=== PATIENT | female | born 1950 | race Caucasian/White ===

== ENCOUNTER → 2024-06-09 | Outpatient (CLI) | payer MEDICARE, BC, SELFPAY ==
--- NOTE | 2024-06-09 | XR_ITS ---
Examination: PA lateral chest 2 views TECHNIQUE: Upright PA lateral chest 2 views Exam date and time: June 09, 2024 at 1148 hours Comparison March 08, 2022 INDICATIONS: Irregular heart rhythm today FINDINGS: Normal heart size Ectatic thoracic aorta. The lungs are clear Moderate osteopenia IMPRESSION: No active disease
[2024-06-09 13:10] LABS: Basophils % (Auto) 0 % (0-2.5); Eosinophils # (Auto) 0.2 Thou/mm3 (0.0-0.5); Eosinophils % (Auto) 4 % (0-10); Hematocrit 38.2 % (36.0-46.0); Hemoglobin 12.8 g/dL (12.0-16.0); Immature Granulocytes % (Auto) 0 % (0-0); Immature Granulocytes Auto 0.01 Thou/mm3 (0.00-0.00); Lymphocytes # (Auto) 1.4 Thou/mm3 (1.0-4.8); Lymphocytes % (Auto) 26 % (10-50); Mean Corpuscular HGB Conc 33.5 g/dl (31.0-37.0); Mean Corpuscular Hemoglobin 32.6 pg (25.0-35.0); Mean Corpuscular Volume 97 fL (80-100); Monocytes # (Auto) 0.4 Thou/mm3 (0.0-0.8); Monocytes % (Auto) 7 % (0-12); Neutrophils # (Auto) 3.4 Thou/mm3 (1.8-7.7); Neutrophils % (Auto) 62 % (37-80); Nucleated Red Blood Cell % 0 /100 WBC (0); Platelet Count 204 Thou/mm3 (140-440); RDW Standard Deviation 46.9 fL (36.4-46.3); Red Blood Count 3.93 Miln/mm3 (4.00-5.20); White Blood Count 5.5 Thou/mm3 (3.6-11.0)
[2024-06-09 13:29] LABS: Alanine Aminotransferase 19 U/L (10-49); Albumin, Serum 4.6 gm/dL (3.4-4.8); Albumin/Globulin Ratio 1.9 (1.2-2.2); Alkaline Phosphatase 80 U/L (46-116); Anion Gap 9 (7-16); Aspartate Amino Transferase 27 U/L (0-34); BUN/Creatinine Ratio 14 Ratio (12-20); Bilirubin,Total 0.3 mg/dL (0.3-1.2); Blood Urea Nitrogen 15 mg/dL (9-23); Calcium 11.4 mg/dL (8.3-10.6); Calcium (Corrected) 11.4 mg/dL (8.5-10.1); Carbon Dioxide 31.5 mMol/L (20.0-31.0); Chloride 105 mMol/L (98-107); Creatinine (Component) 1.1 mg/dL (0.6-1.3); Globulin 2.4 gm/dL (2.3-3.5); Glucose 102 mg/dL (74-106); Osmolality,Calculated 289 (275-295); Potassium 4.1 mMol/L (3.4-5.1); Sodium 145 mMol/L (136-145); eGFR 53 See Note
== END | disposition home or self-care (01) ==
LOC: CDIM 11:11 → COPL 11:57
PROVIDERS: PCP Family Medicine; Referring Provider Family Medicine; Visit Provider Radiology Diagnostic Radiology
DX: Z01.89 Encounter for other specified special examinations (principal); Z01.818 Encounter for other preprocedural examination
CPT/HCPCS: 36415; 71046; 80053; 85025

== ENCOUNTER → 2024-08-28 | Outpatient (CLI) | payer MEDICARE, BC, SELFPAY ==
--- NOTE | 2024-08-28 09:15 | XR_ITS ---
Examination: Screening digital mammography, bilateral Computer aided detection 3-D breast Tomosynthesis, bilateral Date and time of exam: August 28, 2024 0855 hours Compared to mammograms dating to December 12, 2016 Indication: Screening Technique: Nonmagnified MLO, CC views of the breasts to been obtained, reconstructed from 3-D Tomosynthesis images. R2 computer aided detection program utilized for evaluation of suspicious masses and/or abnormal calcifications. 3-D Tomosynthesis images obtained. Findings: The breasts are heterogeneously dense, which may obscure small masses The breast architecture is nodular Left breast sonogram July 25, 2023 demonstrated 5:00 nodule 12 x 9 mm Impression: BI-RADS Category 0: Incomplete: Need additional imaging evaluation Recommend follow-up bilateral breast sonography
== END | disposition home or self-care (01) ==
PROVIDERS: PCP Family Medicine; Referring Provider Family Medicine; Visit Provider Family Medicine
DX: Z12.31 Encounter for screening mammogram for malignant neoplasm of breast (principal)
CPT/HCPCS: 77063; 77067

== ENCOUNTER 2024-09-13 06:52 | Emergency (ER) | payer MEDICARE, BC, SELFPAY ==
[2024-09-13 06:53] VITALS: BP 151/80; PULSE 60; PULSE 66; RESP 18; RESP 20; TEMP 36.7; O2SAT 94; O2SAT 98
--- NOTE | 2024-09-13 07:09 | EDNOTE_ITS ---
ED Chest Pain RME/HPI General Chief Complaint: Back Pain/Injury Stated Complaint: BACK PAIN Time Seen by Provider: 09/13/24 07:15 Arrival date/time: 09/13/24 06:52 Limitations: no limitations RME / HPI RME / HPI narrative: 74 year old female with history of osteoporosis, GERD and chronic lower back pain, presented to the ER [facility] with a chief complaint of chest pain and SOB accompanied by upper back pain. Per patient, she started to experience pain in her upper back when she woke up this morning. Per patient the pain diffused all the body, primarily in her chest. Per patient, she stated she couldn't breath and had SOB. Her called 911 for EMS to arrive shortly. Patient stated her pain scale was a 9 when asked in the ambulance bay. Patient stated she starting using a weight loss medication, Phentaermine, 1 month ago. Patient also stated she has been taking Prednisone and Z-packs for ongoing sinus infection that started on 08/24/24. Patient stated her family does have history of heart problems. Her father and brother have undergone a triple bypass surgery in the past. However, patient denies she had experienced any heart problems or similar symptoms. Patient denies pain in her neck traveling up to her jaw. Patient denies history of diabetes or hypertension. Patient denies history of smoking or drinking. Related Data Home Medications ?Medication ?Instructions ?Recorded ?Confirmed bimatoprost 0.01 % eye drops 1 drp ophthalmic (eye) QD AY 01/06/20 01/06/20 (Lumigan) famotidine 20 mg tablet 20 mg PO QDAY 01/06/2001/05 lorazepam 1 mg tablet 1 mg PO QDAY PRN Sleep 01/0501/06/20 meclizine 25 mg tablet 25 mg PO QDAY PRN Vertigo 01/06/20 methocarbamol 500 mg tablet 500 mg PO QDAY PRN Pain 01/06/20 montelukast 10 mg tablet 10 mg PO QDAY 01/06/2001/05 (Singulair) pentosan polysulfate sodium 100 mg 100 mg PO TID 01/0501/06/20 capsule (Elmiron) Previous Rx's ?Medication ?Instructions ?Recorded apixaban 5 mg (74 tabs) tablets in 5 mg PO BID #74 tab s 01/04/23 a dose pack (Eliquis DVT-PE Treat 30D Start) Allergies Allergy/AdvReac Type Severity Reaction Status Date / Time No Known Allergies Allergy Verified 01/05/23 15:07 Review of Systems Review of Systems Systems Reviewed: All systems reviewed, normal except as documented Narrative Review of Systems: Gen: No fever, no chills, no weight loss EYES: No discharge, no visual changes, no pain HEENT: No ear pain, no congestion, no sore throat PULM: +shortness of breath, no cough, no congestion CV: +chest pain, no dyspnea on exertion, no palpitations GI: No nausea, no vomiting, no diarrhea, no pain, no constipation : No frequency, no urgency, no dysuria Musc/skel: No joint pain, +upper back pain Skin: No rash Psyc: No hallucinations, no depression Heme/Lymph: No easy bleeding or bruising tendencies Neuro: no weakness, no headache Past Medical History Past Medical History NEUROLOGIC: Negative Neurological Disorders CARDIAC: Negative Cardiac Disorders or Congestive Heart Failure RESPIRATORY: Negative Chronic Obstructive Pulmonary Disease (COPD) GASTROINTESTINAL: Positive Gastrointestinal Disorders and Gastroesophageal Reflux Disease GENITOURINARY: Positive Genitourinary Disorders (interstitial cystitis); Negative Renal Disease MUSCULOSKELETAL: Positive Musculoskeletal Disorders and Osteoporosis ENT: Positive Glaucoma ENDOCRINE: Negative Diabetes Mellitus Type 1 or Diabetes Mellitus Type 2 OTHER HISTORY: Negative Blood Transfusions, Blood Transfusion Reaction or Anesthesia Reactions Surgical History SURGICAL: Positive Hysterectomy Social History SMOKING STATUS: Never smoker ED Exam General Limitations: Present no limitations General appearance: Present alert and other (well nourshied, alert and orientated) Head Head exam: Present atraumatic Eye Eye exam: Present normal appearance, PERRL and EOMI ENT ENT exam: Present normal exam, normal oropharynx and mucous membranes moist Neck Neck exam: Present normal inspection, full ROM and trachea midline Chest Chest inspection: Present normal inspection and symmetric chest wall rise Respiratory Respiratory exam: Present normal lung sounds bilaterally and other (tachypenic ) Cardiovascular Cardiovascular exam: Present bradycardia, normal heart sounds and other (no murmur) Abdominal Exam Abdominal exam: Present soft and normal bowel sounds Extremities Exam Extremities exam: Present normal inspection, full ROM and other (no edema ) Back Exam Back exam: Present normal inspection and full ROM Neurological Exam Neurological exam: Present alert, oriented X3, CN II-XII intact and other (non- focal ) Psychiatric Psychiatric exam: Present normal affect and normal mood Skin Skin exam: Present warm, dry, intact and other (pale) Course Course Course Narrative: Chest x-ray has been ordered due to determining etiology of chest pain and SOB. Quality Measures none Orders Category Date Time Status CT Screening NOW Care 09/13/24 07:[address] Screening X1 Care 09/13/24 07:15 Completed Rivet Tapping Machine Operator STAT Care 09/13/24 07:15 Completed Continuous Pulse Oximetry ONCE Care 09/13/24 07:15 Completed EKG (ED ONLY) *Do not use* NOW Care 09/13/24 06:56 Completed In and Out Catheter X1 Care 09/13/24 07:15 Completed Insert IV STAT Care 09/13/24 07:15 Completed Transfer to another facility [Transfer/Discharge] Stat Discharge 09/13/24 09:[address] chest abd w Stat Exams 09/13/24 07:15 Completed EKG (ED Only) Stat Exams 09/13/24 06:56 Ordered XR chest 1V portable Stat Exams 09/13/24 07:15 Completed B-Type Natriuretic Peptide Stat Lab 09/13/24 07:53 Completed CBC Stat Lab 09/13/24 07:53 Completed Comprehensive Metabolic Panel Stat Lab 09/13/24 07:53 Completed Lipase Stat Lab 09/13/24 07:53 Completed Magnesium Stat Lab 09/13/24 07:53 Completed Partial Thromboplastin Time Stat Lab 09/13/24 07:53 Completed Prothrombin Time with INR Stat Lab 09/13/24 07:53 Completed Troponin I Stat Lab 09/13/24 07:53 Completed UA, C/S IF [Urinalysis, C/S if Indicated] Stat Lab 09/13/24 09:26 Completed Aspirin Chew Med 09/13/24 07:15 Discontinued 324 mg PO X1 ONE Morphine Inj Med 09/13/24 07:21 Discontinued 2 mg IVP X1 ONE Morphine Inj Med 09/13/24 11:26 Discontinued 4 mg IVP X1 ONE Nitroglycerin [Nitrostat 1/150] Med 09/13/24 07:15 Discontinued 0.4 mg SL Q5M PRN Ondansetron Inj [Zofran Inj] Med 09/13/24 07:15 Discontinued 4 mg IV Q1HR PRN Ondansetron Inj [Zofran Inj] Med 09/13/24 11:26 Discontinued 4 mg IV X1 ONE Sodium Chloride 0.9% 1000 ml [Ns] 1,000 ml Med 09/13/24 07:15 Discontinued IV 50 mls/hr Oxygen Delivery NOW RT 09/13/24 07:15 Completed Vital Signs Vital signs: Vital Signs Temperature 98.0 F 09/13/24 06:53 Pulse Rate 60 09/13/24 06:53 Respiratory Rate 18 09/13/24 06:53 Blood Pressure 151/80 H 09/13/24 06:53 Pulse Oximetry (%) 98 09/13/24 06:53 Oxygen Delivery Method Room Air 09/13/24 06:53 Chest Pain MDM Narrative MDM Narrative:: IKavya am scribing for and in the presence of Dr. Osullivan. Patient data External records reviewed:: [facility] previous records Clinical information provided by:: patient Social determinants that could affect healthcare access:: none Patient has the following chronic illnesses:: osteoporosis, GERD and chronic lower back pain How is presenting disease/condition affected by chronic disease/condition?: exacerbated by Evaluation data The following diagnostics were reviewed and interpreted by me:: lab results, radiology exam(s) and EKG tracing(s) (-EKG#1: EKG at 0653 hours.Interpreted by me: ectopic atrial bradycardia, rate 53, first degree AV block, no acute ST/T wave changes) Lab and/or radiology exams considered but not ordered:: none Interpretation Summary: Ordering Physician: Ryan Osullivan MD Date of Service: 09/13/24 Procedure(s): XR chest 1V portable Accession Number(s): [id number] cc: Ryan Osullivan MD; Tray Rojas MD; Gail Cosme MD~ Examination: AP chest single view Technique one AP portable semiupright chest single view Examination type: September 13, 2024 0810 hours Comparison June 09, 2024 INDICATIONS: Chest pain radiating to the back beginning this morning. FINDINGS: Normal heart size Mild ectasia thoracic aorta. No pneumonia or pulmonary edema. Moderate osteopenia IMPRESSION: No active disease Dictated By: Tray Rojas MD Signed By: <Electronically signed by Tray Rojas MD in OV> 09/13/24 0827 Ordering Physician: Ryan Osullivan MD Date of Service: 09/13/24 Procedure(s): CT chest abd w Accession Number(s): [id number] cc: Ryan Osullivan MD; Tray Rojas MD; Gail Cosme MD~ Examination: CT chest with intravenous contrast CT abdomen with intravenous contrast CT pelvis with intravenous contrast 2-D coronal and sagittal reconstructions Time of exam: September 13, 2024 0856 hours INDICATIONS: Chest pain shortness of breath back pain today CTDI: vol (mGy) : 14.5 DLP: (mGycm): 670 Technique: Multiple axial images of the chest, abdomen and pelvis with intravenous contrast, 3.0 mm slice thickness. Images obtained post intravenous injection Isovue 370 60 cc. 2-D sagittal and coronal reconstructions. Low dose protocols were performed. One or more of the following dose reduction techniques were used; automated exposure control, adjustment of the mA and/or KV according to patient size, use of iterative reconstruction technique. Findings: No thoracic aortic aneurysmal dilatation No pulmonary artery filling defects Ulceration in the wall of the posterior descending thoracic aorta, axial image 83 with chronic thrombus, no definite intimal filling defect, as well as small contrast accumulation in the descending thoracic aorta, axial image 54 which can be a sign of early descending thoracic aortic dissection No pneumonia or pulmonary edema Mild enlargement left atrium and left ventricle No visualized liver splenic lesion No gallstones No pancreatic or adrenal mass Small fat-containing umbilical hernia Abdominal aortic calcification no aneurysmal dilatation No renal or ureteral calculi, no hydronephrosis No pericecal inflammatory change Colonic diverticulosis, no diverticulitis Tiny air droplet in the urinary bladder Severe osteopenia Lumbar fusion L4-L5 Mild to moderate thoracic degenerative disc disease IMPRESSION: No thoracic aortic aneurysm dilatation Ulceration in the wall of the posterior descending thoracic aorta, axial image 83 with chronic thrombus, as well as early contrast accumulation in the posterior wall of the descending thoracic aorta, axial image 53 which may be a finding of early descending thoracic aortic dissection, clinical correlation advised Recommend close clinical observation and short-term follow-up CTA chest as clinically warranted Dictated By: Tray Rojas MD Signed By: <Electronically signed by Tray Rojas MD in OV> 09/13/24 0918 Medications / Prescriptions Medications or Prescriptions considered but not ordered:: none Medication administrations:: Medication Administration History Discontinued Medications Aspirin (Aspirin 81 Mg Chew) 324 mg PO X1 ONE Stop: 09/13/24 07:16 Last Admin: 09/13/24 08:30 Dose: Not Given Documented By: DO Non-Admin Reason: Other, see note Comments: PT TO FOUR 81MG ASA PRIOR TO ARRIVAL AT 0600AM Sodium Chloride (Ns) 1,000 mls @ 50 mls/hr IV .Q20H ONE Stop: 09/14/24 03:14 Last Admin: 09/13/24 08:50 Dose: 50 mls/hr Documented By: DO Morphine Sulfate (Morphine Sulf Inj 10 Mg/Ml Vial) 2 mg IVP X1 ONE Stop: 09/13/24 07:22 Last Admin: 09/13/24 08:44 Dose: 2 mg Documented By: DO Morphine Sulfate (Morphine Sulf Inj 10 Mg/Ml Vial) 4 mg IVP X1 ONE Stop: 09/13/24 11:27 Last Admin: 09/13/24 11:36 Dose: 4 mg Documented By: DO Nitroglycerin (Nitroglycerin 0.4 Mg Subl Btl #25) 0.4 mg SL Q5M PRN PRN Reason: CHEST PAIN Ondansetron HCl (Ondansetron Inj 2 Mg/Ml Inj 2 Ml) 4 mg IV Q1HR PRN PRN Reason: PERSISTENT NAUSEA OR VOMITING Ondansetron HCl (Ondansetron Inj 2 Mg/Ml Inj 2 Ml) 4 mg IV X1 ONE; Protocol Stop: 09/13/24 11:27 Last Admin: 09/13/24 11:37 Dose: Not Given Documented By: DO Non-Admin Reason: Patient Refused see above. Consultations Consultation(s) initiated? (list below): Yes Consultation #1 (Physician, Specialty, Details): I spoke withn Transfer Nurse and Physician at [facility] and was made aware of the patient?s HPI, PMHx, lab and/or radiology results. Recommended patient be transfered to a [facility]. Time: 10:25 Consultation #2 (Physician, Specialty, Details): I spoke with transfer nurse and was made aware of recommendation to transfer to a tertiary center. Time: 10:32 Consultation #3 (Physician, Specialty, Details): Patient has been accepted at [facility]. Time: 11:00 Diagnosis Chest Pain Differential Diagnosis: pneumothorax, atypical chest pain and st elevation myocardial infarction Most likely diagnosis given after review of the tests above:: hypertension, bradycardia, aortic aneurysm and dissection Admission Indicated Admission indicated?: not indicated Explain why admission is indicated or not indicated:: Patient requires transfer. Admission Request Was there a request for admission?: No Disposition Plan Disposition Plan: Transfer Critical Care Time Critical Care Time Critical Care Time: Yes Total Critical Care Time (min.): 90 Attestation: The high probability of sudden, clinically significant deterioration in the patient?s condition required the highest level of my preparedness to intervene urgently. ? The services I provided to this patient were to treat and/or prevent clinically significant deterioration. Services included the following: chart data review, reviewing nursing notes and/or old charts, documentation time, software sales consultant collaboration regarding findings and treatment options, medication orders and management, direct patient care, vital sign assessments and ordering, interpreting and reviewing diagnostic studies and lab tests. ? Aggregate critical care time includes only time during which I was engaged in work directly related to the patient?s care, as described above, whether at bedside or elsewhere in the Emergency Department. It did not include time spent performing other reported procedures or the services of residents, students, nurses or physician assistants. Discharge Plan Plan Patient Disposition: [facility] Facility Pt Being Transferred to: [facility] Service Needed for Transfer: Cardiovascular/Thoracic Surg Patient condition on transfer: Stable Prescriptions/Referrals Prescriptions/Med Rec: No Action methocarbamol 500 mg Tablet 500 mg PO QDAY PRN (Reason: Pain) Elmiron 100 mg Capsule 100 mg PO TID famotidine 20 mg Tablet 20 mg PO QDAY meclizine 25 mg Tablet 25 mg PO QDAY PRN (Reason: Vertigo) montelukast [Singulair] 10 mg Tablet 10 mg PO QDAY lorazepam 1 mg Tablet 1 mg PO QDAY PRN (Reason: Sleep) Lumigan 0.01 % Drops 1 drp OPHTHALMIC (EYE) QDAY Eliquis DVT-PE Treat 30D Start 5 mg (74 tabs) tablets,dose pack 5 mg PO BID Qty: 74 0RF Rx Instructions: Take 2 tabs PO BID for first 7 days, then 1 tab PO BID Referrals: Gail Cosme MD [Primary Care Provider] - In 1 week Problem List Clinical Impression: Hypertension, Bradycardia, Aortic aneurysm and dissection Patient/Caregiver Discharge Instructions Print Language: Mohawk Stand Alone Forms: Tiff Award Info., Patient Portal Info Letter
--- NOTE | 2024-09-13 07:15 | XR_ITS ---
Examination: CT chest with intravenous contrast CT abdomen with intravenous contrast CT pelvis with intravenous contrast 2-D coronal and sagittal reconstructions Time of exam: September 13, 2024 0856 hours INDICATIONS: Chest pain shortness of breath back pain today CTDI: vol (mGy) : 14.5 DLP: (mGycm): 670 Technique: Multiple axial images of the chest, abdomen and pelvis with intravenous contrast, 3.0 mm slice thickness. Images obtained post intravenous injection Isovue 370 60 cc. 2-D sagittal and coronal reconstructions. Low dose protocols were performed. One or more of the following dose reduction techniques were used; automated exposure control, adjustment of the mA and/or KV according to patient size, use of iterative reconstruction technique. Findings: No thoracic aortic aneurysmal dilatation No pulmonary artery filling defects Ulceration in the wall of the posterior descending thoracic aorta, axial image 83 with chronic thrombus, no definite intimal filling defect, as well as small contrast accumulation in the descending thoracic aorta, axial image 54 which can be a sign of early descending thoracic aortic dissection No pneumonia or pulmonary edema Mild enlargement left atrium and left ventricle No visualized liver splenic lesion No gallstones No pancreatic or adrenal mass Small fat-containing umbilical hernia Abdominal aortic calcification no aneurysmal dilatation No renal or ureteral calculi, no hydronephrosis No pericecal inflammatory change Colonic diverticulosis, no diverticulitis Tiny air droplet in the urinary bladder Severe osteopenia Lumbar fusion L4-L5 Mild to moderate thoracic degenerative disc disease IMPRESSION: No thoracic aortic aneurysm dilatation Ulceration in the wall of the posterior descending thoracic aorta, axial image 83 with chronic thrombus, as well as early contrast accumulation in the posterior wall of the descending thoracic aorta, axial image 53 which may be a finding of early descending thoracic aortic dissection, clinical correlation advised Recommend close clinical observation and short-term follow-up CTA chest as clinically warranted
--- NOTE | 2024-09-13 07:15 | XR_ITS ---
Examination: AP chest single view Technique one AP portable semiupright chest single view Examination type: September 13, 2024 0810 hours Comparison June 09, 2024 INDICATIONS: Chest pain radiating to the back beginning this morning. FINDINGS: Normal heart size Mild ectasia thoracic aorta. No pneumonia or pulmonary edema. Moderate osteopenia IMPRESSION: No active disease
[2024-09-13 08:21] LABS: Partial Thromboplastin Time 23.2 Seconds (22.0-36.0); Prothrombin Time 11.2 Seconds (9.0-12.2)
[2024-09-13 08:22] LABS: Basophils % (Auto) 0 % (0-2.5); Eosinophils # (Auto) 0.1 Thou/mm3 (0.0-0.5); Eosinophils % (Auto) 2 % (0-10); Hematocrit 33.8 % (36.0-46.0); Hemoglobin 11.6 g/dL (12.0-16.0); Immature Granulocytes % (Auto) 0 % (0-0); Immature Granulocytes Auto 0.01 Thou/mm3 (0.00-0.00); Lymphocytes # (Auto) 1.8 Thou/mm3 (1.0-4.8); Lymphocytes % (Auto) 31 % (10-50); Mean Corpuscular HGB Conc 34.3 g/dl (31.0-37.0); Mean Corpuscular Hemoglobin 33.5 pg (25.0-35.0); Mean Corpuscular Volume 98 fL (80-100); Monocytes # (Auto) 0.5 Thou/mm3 (0.0-0.8); Monocytes % (Auto) 9 % (0-12); Neutrophils # (Auto) 3.6 Thou/mm3 (1.8-7.7); Neutrophils % (Auto) 59 % (37-80); Nucleated Red Blood Cell % 0 /100 WBC (0); Platelet Count 167 Thou/mm3 (140-440); RDW Standard Deviation 49.1 fL (36.4-46.3); Red Blood Count 3.46 Miln/mm3 (4.00-5.20)
[2024-09-13 08:26] LABS: B-Type Natriuretic Peptide 62 pg/mL (0-100)
[2024-09-13 08:28] LABS: Alanine Aminotransferase 31 U/L (10-49); Albumin/Globulin Ratio 1.8 (1.2-2.2); Alkaline Phosphatase 72 U/L (46-116); Anion Gap 5 (7-16); Aspartate Amino Transferase 26 U/L (0-34); BUN/Creatinine Ratio 17 Ratio (12-20); Bilirubin,Total 0.5 mg/dL (0.3-1.2); Blood Urea Nitrogen 15 mg/dL (9-23); Calcium 9.2 mg/dL (8.3-10.6); Calcium (Corrected) 9.2 mg/dL (8.5-10.1); Chloride 108 mMol/L (98-107); Creatinine (Component) 0.9 mg/dL (0.6-1.3); Globulin 2.2 gm/dL (2.3-3.5); Glucose 94 mg/dL (74-106); Lipase 27 U/L (12-53); Osmolality,Calculated 283 (275-295); Potassium 3.4 mMol/L (3.4-5.1); Sodium 142 mMol/L (136-145); Total Protein 6.2 gm/dL (5.7-8.2); Troponin I < 0.002 ng/mL (0.0-0.045); eGFR > 60 See Note
[2024-09-13] MEDS: MORPHINE SULF INJ 10 MG/ML VIAL 2 MG IVP (08:44)
[2024-09-13] MEDS: SODIUM CHLORIDE 0.9% 1000 ML 1,000 ML 50 ML IV (08:50)
[2024-09-13 09:41] LABS: Collection Type, Urine Catheter; Squamous Epithelial Cell,Urine 0 /hpf (0-5)
--- NOTE | 2024-09-13 09:52 | PC.CC ---
Addendum entered by Germán Foreman RN 09/13/24 11:48: called [facility] to inform them pt was accepted by [facility]. Kim informed me they don't have the service the patient requires. Addendum entered by Germán Foreman RN 09/13/24 11:46: At 1030, received call from Kristi at [facility]. pt is accepted by Dr. Eaton ED to ED transfer. Packet completed with CD in packet. Ambulance arrived to pickling operator pt. Addendum entered by Germán Foreman RN 09/13/24 10:23: 1000: spoke to Kristi at [facility], requested imaging to be sent via synapse. Kristi requested to speak to MD requested transfer Dr. Osullivan. transferred call to Dr. Osullivan. 1017: i called and spoke to Kim at [facility], she confirmed receipt of packet and is currently reviewing. Original Note: 0951: referrals sent to [facility] and [facility] - awaiting response. 0929: spoke to mission systems engineer Lanise to clarify service needed. I was informed cardiothoracic services needed. 0922: received referral for transfer
[2024-09-13 09:56] LABS: Bilirubin,Urine Negative (Negative); Blood,Urine Trace (Negative); Clarity,Urine Clear (Clear/Hazy); Color,Urine Lt-Yellow (Lt Yel-Yel); Culture Indicated,Urine Not Indicated; Glucose, Urine Negative (Negative); Ketones,Urine Negative (Negative); Leukocyte Esterase,Urine Negative (Negative); Nitrite,Urine Negative (Negative); PH,Urine 7.5 (5.0-7.0); Protein,Urine Negative (Neg - Trace); RBC,Urine 9 /hpf (0-3); Specific Gravity,Urine 1.015 (1.001-1.035); Urobilinogen,Urine Negative mg/dL (0.0-1.0); WBC,Urine 4 /hpf (0-5)
--- NOTE | 2024-09-13 11:30 | PC.NURSE ---
REPORT GIVEN TO JUAN AT [facility]
[2024-09-13] MEDS: MORPHINE SULF INJ 10 MG/ML VIAL 4 MG IVP (11:36)
--- NOTE | 2024-09-13 11:39 | PC.NURSE ---
PT TRANSFERRED TO [facility] AT THIS TIME
== END 2024-09-13 11:50 | disposition short-term general hospital (02) ==
PROVIDERS: Emergency Provider Family Medicine; PCP Family Medicine
DX: R00.1 Bradycardia, unspecified (principal); I10 Essential (primary) hypertension; I71.012 Dissection of descending thoracic aorta
CPT/HCPCS: 36415; 71045; 71260; 74160; 80053; 81001; 83690; 83735; 83880; 84484; 85025; 85610; 85730; 93005; 96374; 99291; 99292; A4649; J2270; J7030; Q9967

== ENCOUNTER → 2024-09-19 | Outpatient (CLI) | payer MEDICARE, BC, SELFPAY ==
[2024-09-19 14:28] LABS: Collection Type, Urine Clean Catch
[2024-09-19 16:18] LABS: Clarity,Urine Cloudy (Clear/Hazy); Color,Urine Yellow (Lt Yel-Yel); Glucose, Urine 0 (Negative)
[2024-09-19 16:19] LABS: Bacteria,Urine 2+; Bilirubin,Urine Negative (Negative); Blood,Urine 3+ (Negative); Ketones,Urine Negative (Negative); Leukocyte Esterase,Urine 2+ (Negative); Nitrite,Urine Negative (Negative); Protein,Urine 1+ (Neg - Trace); RBC,Urine 5 /hpf (0-3); Squamous Epithelial Cell,Urine 2 /hpf (0-5); Urobilinogen,Urine 0.2 mg/dL (0.0-1.0); WBC,Urine 100 /hpf (0-5)
== END | disposition home or self-care (01) ==
LOC: SLDO 14:21
PROVIDERS: PCP Family Medicine; Referring Provider Family Medicine; Visit Provider Family Medicine
DX: N39.0 Urinary tract infection, site not specified (principal)
CPT/HCPCS: 81001; 87086

== ENCOUNTER → 2024-09-23 | Outpatient (CLI) | payer MEDICARE, BC, SELFPAY ==
--- NOTE | 2024-09-23 | XR_ITS ---
Examination: CTA chest, with intravenous contrast. CTA abdomen, with intravenous contrast. CTA pelvis, with intravenous contrast. 2-D sagittal and coronal reconstructions. 3-D reconstructions. Date and time of exam: September 23, [address] chest abdomen pelvis September 13, 2024 INDICATIONS: Diagnosis ulceration in the posterior descending thoracic aorta with chronic thrombus on CT study September 23, 2024 CTDI vol (mgy) 19 DLP (MGycm) 944 Technique: Multiple CTA images, 2.0 mm slice thickness, obtained chest, abdomen, pelvis, with the high-resolution 64 slice scanner. 100 cc Isovue-370 is administered intravenously. Sagittal and coronal 2-D reconstructions are obtained. 3-D reconstructions, angiographic images are obtained. 3-D postprocessing, including vascular maximum intensity projections. Low dose protocols were performed. One or more of the following dose reduction techniques were used; automated exposure control, adjustment of the mA and/or KV according to patient size, use of iterative reconstruction technique. Findings: AP dimension ascending thoracic aorta 33 mm No pulmonary artery emboli No mediastinal lymphadenopathy Posterior defect in the descending thoracic aorta axial image 121 measuring 5 mm Contrast in the wall of the descending thoracic aorta, axial image 128 consistent with early descending thoracic aortic dissection Mural thrombus in the thoracic aortic arch and descending thoracic aorta Additional contrast and double lumen in the descending thoracic aorta axial image 146 through 161 AP dimension of the true lumen descending thoracic aorta 27 mm No dissection involving the abdominal aorta is depicted No infarction involving the liver spleen or kidneys noted No gallstones No abdominal aortic aneurysmal dilatation No bowel obstruction Colonic diverticulosis Mild thickening of the urinary bladder wall anteriorly IMPRESSION: 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
== END | disposition home or self-care (01) ==
PROVIDERS: PCP Family Medicine; Referring Provider Family Medicine; Visit Provider Family Medicine
DX: I71.012 Dissection of descending thoracic aorta (principal)
CPT/HCPCS: 71275; 74174; A4649; Q9967

== ENCOUNTER → 2024-11-20 | Outpatient (CLI) | payer MEDICARE, BC, SELFPAY ==
[2024-11-20 09:49] LABS: Glucose Estimated Average 103 mg/dL (80-131); Hemoglobin A1C 5.2 % Hgb (4.8-6.0)
== END | disposition home or self-care (01) ==
LOC: COPL 09:01
PROVIDERS: PCP Family Medicine; Referring Provider Family Medicine; Visit Provider Family Medicine
DX: R79.9 Abnormal finding of blood chemistry, unspecified (principal)
CPT/HCPCS: 36415; 83036

== ENCOUNTER → 2024-11-25 | Outpatient (CLI) | payer MEDICARE, BC, SELFPAY ==
[2024-11-25 14:48] LABS: Collection Type, Urine Catheter
[2024-11-25 16:06] LABS: Bacteria,Urine Rare; Bilirubin,Urine Negative (Negative); Blood,Urine 2+ (Negative); Budding Yeast,Urine Present; Color,Urine Yellow (Lt Yel-Yel); Glucose, Urine Negative (Negative); Ketones,Urine Negative (Negative); Leukocyte Esterase,Urine Positive (Negative); Nitrite,Urine Positive (Negative); PH,Urine 7.5 (5.0-7.0); Protein,Urine Negative (Neg - Trace); RBC,Urine 16 /hpf (0-3); Specific Gravity,Urine 1.012 (1.001-1.035); Squamous Epithelial Cell,Urine < 1 /hpf (0-5); Urobilinogen,Urine Negative mg/dL (0.0-1.0); WBC,Urine 194 /hpf (0-5)
[2024-11-25 16:07] LABS: Clarity,Urine Hazy (Clear/Hazy)
== END | disposition home or self-care (01) ==
LOC: SLDO 14:39
PROVIDERS: PCP Family Medicine; Referring Provider Family Medicine; Visit Provider Family Medicine
DX: N39.0 Urinary tract infection, site not specified (principal)
CPT/HCPCS: 81001; 87077; 87086; 87186

== ENCOUNTER → 2025-01-28 | Outpatient (CLI) | payer MEDICARE, BC, SELFPAY ==
[2025-01-28 14:44] LABS: Collection Type, Urine Clean Catch
[2025-01-28 16:47] LABS: Bacteria,Urine Rare; Bilirubin,Urine Negative (Negative); Blood,Urine 2+ (Negative); Color,Urine Yellow (Lt Yel-Yel); Glucose, Urine Negative (Negative); Ketones,Urine Negative (Negative); Leukocyte Esterase,Urine Positive (Negative); Nitrite,Urine Positive (Negative); PH,Urine 6.5 (5.0-7.0); Protein,Urine Negative (Neg - Trace); RBC,Urine 33 /hpf (0-3); Specific Gravity,Urine 1.015 (1.001-1.035); Squamous Epithelial Cell,Urine < 1 /hpf (0-5); Urobilinogen,Urine Negative mg/dL (0.0-1.0); WBC,Urine 130 /hpf (0-5)
[2025-01-28 16:55] LABS: Clarity,Urine Hazy (Clear/Hazy)
== END | disposition home or self-care (01) ==
LOC: SLDO 14:24
PROVIDERS: PCP Family Medicine; Referring Provider Family Medicine; Visit Provider Family Medicine
DX: N39.0 Urinary tract infection, site not specified (principal)
CPT/HCPCS: 81001; 87077; 87086; 87186

== ENCOUNTER → 2025-02-12 | Outpatient (CLI) | payer MEDICARE, BC, SELFPAY ==
--- NOTE | 2025-02-12 10:24 | XR_ITS ---
Examination: Breast ultrasound complete, bilateral Date and time of exam: February 12, 2025, 10:33 a.m. INDICATIONS: Right breast tenderness beginning 2 weeks ago, family history of breast cancer Technique: Real-time grayscale ultrasonographic imaging bilateral breasts, including all 4 quadrants as well as nipple retroareolar and axillary regions. Findings: Sonographic images right breast No cystic or solid mass Sonographic images left breast 4:00 nodule lobular margins 9 x 8 mm IMPRESSION: BI-RADS Category 3: Probably benign findings 1 additional 6-month left breast sonogram follow-up strongly recommended to document stability of 4:00 nodule described above
== END | disposition home or self-care (01) ==
PROVIDERS: PCP Family Medicine; Referring Provider Family Medicine; Visit Provider Family Medicine
DX: N63.23 Unspecified lump in the left breast, lower outer quadrant (principal)
CPT/HCPCS: 76641

== ENCOUNTER → 2025-04-21 | Outpatient (CLI) | payer MEDICARE, BC, SELFPAY ==
[2025-04-21 14:14] LABS: Basophils # (Auto) 0.0 Thou/mm3 (0.0-0.2); Basophils % (Auto) 0 % (0-2.5); Eosinophils # (Auto) 0.1 Thou/mm3 (0.0-0.5); Eosinophils % (Auto) 2 % (0-10); Hematocrit 36.3 % (36.0-46.0); Hemoglobin 11.8 g/dL (12.0-16.0); Immature Granulocytes Auto 0.01 Thou/mm3 (0.00-0.00); Lymphocytes # (Auto) 0.9 Thou/mm3 (1.0-4.8); Lymphocytes % (Auto) 18 % (10-50); Mean Corpuscular HGB Conc 32.5 g/dl (31.0-37.0); Mean Corpuscular Hemoglobin 32.0 pg (25.0-35.0); Mean Corpuscular Volume 98 fL (80-100); Monocytes # (Auto) 0.4 Thou/mm3 (0.0-0.8); Monocytes % (Auto) 8 % (0-12); Neutrophils # (Auto) 3.4 Thou/mm3 (1.8-7.7); Neutrophils % (Auto) 72 % (37-80); Nucleated Red Blood Cell # 0.00 Thou/mm3 (0.00-0.00); Nucleated Red Blood Cell % 0 /100 WBC (0); Platelet Count 196 Thou/mm3 (140-440); RDW Standard Deviation 48.5 fL (36.4-46.3); Red Blood Count 3.69 Miln/mm3 (4.00-5.20); White Blood Count 4.8 Thou/mm3 (3.6-11.0)
[2025-04-21 14:32] LABS: Albumin, Serum 4.9 gm/dL (3.4-4.8); Anion Gap 10 (7-16); BUN/Creatinine Ratio 11 Ratio (12-20); Blood Urea Nitrogen 10 mg/dL (9-23); Calcium 10.3 mg/dL (8.3-10.6); Calcium (Corrected) 10.3 mg/dL (8.5-10.1); Carbon Dioxide 29.2 mMol/L (20.0-31.0); Chloride 103 mMol/L (98-107); Creatinine (Component) 0.9 mg/dL (0.6-1.3); Free T4 (Free Thyroxine) 1.52 ng/dL (0.89-1.76); Glucose 92 mg/dL (74-106); Osmolality,Calculated 282 (275-295); Phosphorous 2.8 mg/dL (2.4-5.1); Potassium 4.0 mMol/L (3.4-5.1); Sodium 142 mMol/L (136-145); Thyroid Stimulating Hormone 0.45 uIU/mL (0.55-4.78); eGFR > 60 See Note
== END | disposition home or self-care (01) ==
LOC: COPL 12:07
PROVIDERS: PCP Family Medicine; Referring Provider Internal Medicine Cardiovascular Disease; Visit Provider Internal Medicine Cardiovascular Disease
DX: I71.00 Dissection of unspecified site of aorta (principal); E03.9 Hypothyroidism, unspecified; I10 Essential (primary) hypertension; I20.89 Other forms of angina pectoris; I73.9 Peripheral vascular disease, unspecified; I35.0 Nonrheumatic aortic (valve) stenosis
CPT/HCPCS: 36415; 80069; 84439; 84443; 85025